=== PATIENT | male | born 1935 | race African-American/Black ===

== ENCOUNTER 2021-12-11 20:17 | Observation (INO) ==
[2021-12-11] MEDS ORDERED: SODIUM CHLORIDE 0.9% 1,000 ML IV STA (21:23)
[2021-12-11 21:58] LABS: Basophils % 0.1 % (0.0-0.8); Eosinophils % 0.1 % (0.00-10.9); Hematocrit 40.8 VOL% (42.0-52.0); Hemoglobin 13.4 GM/DL (14.0-18.0); Immature Granulocytes % 0.9 %; Immature Granulocytes Absolute 0.06 #; Lymphocytes # 0.7 10*3/uL (1.4-4.0); Lymphocytes % 9.7 % (21.2-54.2); Mean Corpuscular HGB Conc 32.8 GM/DL (32-36); Mean Corpuscular Volume 90.7 FL (87-102); Mean Platelet Volume 10.8 FL (9.6-12.0); Monocytes # 0.3 10*3/uL (0.11-0.8); Monocytes % 4.4 % (1.7-12.7); Neutrophils % 84.8 % (38.7-73.9); Platelet Count 157 T/CUMM (130-400); Red Cell Distribution Width 14.1 % (9.3-17.3)
[2021-12-11 22:24] LABS: Albumin 3.1 G/DL (3.4-5.0); Bilirubin,Total 0.4 MG/DL (0.20-1.00); Calcium 9.1 MG/DL (8.5-10.1); Osmolality,Calculated 271.5 MOS/KG (273-304); Potassium 3.6 MMOL/L (3.5-5.1); Thyroid Stimulating Hormone 1.13 uIU/ml (0.358-3.74); Total Protein 7.6 G/DL (6.4-8.2)
[2021-12-11 22:49] LABS: Bilirubin,Urine Negative (Negative); Blood, Urine Negative (Negative); Glucose,Urine (UA) Negative (Negative); Ketones,Urine Negative (Negative); Mucus,Urine Occasional /LPF (Occasional); Nitrite,Urine Negative (Negative); Protein,Urine Negative (Negative); RBC,Urine 1 /HPF (0-4); Urine Appearance Clear (Clear); Urine Color Yellow (Yellow); Urine Specific Gravity 1.015 (1.001-1.035); Urine Urobilinogen 0.2 eU/dL (<2.0)
[2021-12-11] MEDS: DEXTROSE 5% NACL 0.45% 1,000 ML IV SCH (23:44)
[2021-12-12] MEDS ORDERED: DEXTROSE 10% 250 ML BAG IV PRN (00:26)
[2021-12-12] MEDS ORDERED: ONDANSETRON 4 MG/2 ML VIAL IV PRN (00:26)
[2021-12-12] MEDS ORDERED: diphenhydrAMINE CAP 25 MG CAPSULE PO PRN (00:26)
[2021-12-12] MEDS ORDERED: ACETAMINOPHEN 325 MG TABLET PO PRN (00:26)
[2021-12-12] MEDS ORDERED: guaiFENesin/DM ER 600-30 MG TABLET PO PRN (00:26)
[2021-12-12] MEDS ORDERED: GLUCAGON 1 MG VIAL IM PRN ×2 (00:26)
[2021-12-12] MEDS ORDERED: hydrALAZINE 20 MG/1 ML VIAL IV PRN (00:26)
[2021-12-12] MEDS ORDERED: NICOTINE 21 MG/24 HR PATCH TRANSDERM PRN (00:26)
[2021-12-12] MEDS ORDERED: DEXTROSE 50% 25 GM/50 ML VIAL IV PRN (00:26)
[2021-12-12 01:17] LABS: INR 1.9; PT Patient Result 20.2 SECS (10.5-12.0); Partial Thromboplastin Time 31.2 SECS (23.8-32.1)
[2021-12-12] MEDS: DEXTROSE 5% NACL 0.45% 1,000 ML IV SCH (03:58)
[2021-12-12 05:49] LABS: Calcium 8.7 MG/DL (8.5-10.1); Osmolality,Calculated 268.8 MOS/KG (273-304); Potassium 4.6 MMOL/L (3.5-5.1)
[2021-12-12 06:21] LABS: Basophils % 0.3 % (0.0-0.8); Eosinophils % 0.3 % (0.00-10.9); Hematocrit 39.6 VOL% (42.0-52.0); Hemoglobin 12.5 GM/DL (14.0-18.0); Immature Granulocytes % 0.5 %; Immature Granulocytes Absolute 0.03 #; Mean Corpuscular HGB Conc 31.6 GM/DL (32-36); Mean Corpuscular Volume 94.1 FL (87-102); Mean Platelet Volume 11.3 FL (9.6-12.0); Monocytes # 0.6 10*3/uL (0.11-0.8); Monocytes % 9.3 % (1.7-12.7); Neutrophils % 72.6 % (38.7-73.9); Platelet Count 126 T/CUMM (130-400); Red Blood Count 4.21 MC/CUMM (3.8-5.5); Red Cell Distribution Width 14.3 % (9.3-17.3); White Blood Count 6.1 T/CUMM (4-12)
[2021-12-12] MEDS ORDERED: DEXTROSE 5% NACL 0.9% 1,000 ML IV SCH (07:00)
[2021-12-12] MEDS ORDERED: DEXTROSE 10% 1,000 ML IV SCH (07:00)
[2021-12-12] MEDS ORDERED: SERTRALINE 25 MG TABLET PO SCH (09:00)
[2021-12-12] MEDS ORDERED: PANTOPRAZOLE 40 MG TABLET PO SCH (09:00)
[2021-12-12] MEDS ORDERED: sitaGLIPtin 100 MG TABLET PO SCH (09:00)
[2021-12-12] MEDS ORDERED: lisinopriL 20 MG TABLET PO SCH (09:00)
[2021-12-12] MEDS ORDERED: FUROSEMIDE 20 MG TABLET PO SCH (09:00)
[2021-12-12] MEDS: POLYVINYL ALCOHOL 1.4% OPH SOLN 15 ML BOTTLE RIGHT EYE SCH ×2 (11:10→13:46)
[2021-12-12 15:36] VITALS: BP 134/51
[2021-12-12] MEDS ORDERED: WARFARIN 5 MG TABLET PO SCH (18:00)
[2021-12-12] MEDS ORDERED: SIMVASTATIN 40 MG TABLET PO SCH (21:00)
== END 2021-12-12 18:05 | disposition home health service (06) ==
LOC: N.EDINP 20:17 → N.ED 20:17 → SUATTDRO 12-12 00:26 → N.5E 12-12 03:52
PROVIDERS: ADMIT Internal Medicine; ATTEND Internal Medicine

== ENCOUNTER 2022-02-27 19:04 | Inpatient (IN) ==
[2022-02-27] MEDS ORDERED: SODIUM CHLORIDE 0.9% 1,000 ML IV STA ×2 (20:09→22:31)
[2022-02-27 20:34] LABS: Basophils % 0.3 % (0.0-0.8); Hematocrit 33.9 VOL% (42.0-52.0); Immature Granulocytes % 1.6 %; Lymphocytes # 0.7 10*3/uL (1.4-4.0); Lymphocytes % 10.4 % (21.2-54.2); Mean Corpuscular HGB Conc 32.4 GM/DL (32-36); Mean Platelet Volume 11.5 FL (9.6-12.0); Monocytes # 0.6 10*3/uL (0.11-0.8); Monocytes % 9.9 % (1.7-12.7); Neutrophils % 77.8 % (38.7-73.9); Platelet Count 181 T/CUMM (130-400); Red Blood Count 3.81 MC/CUMM (3.8-5.5); Red Cell Distribution Width 15.4 % (9.3-17.3); White Blood Count 6.4 T/CUMM (4-12)
[2022-02-27 20:52] LABS: INR 1.1; PT Patient Result 12.4 SECS (10.1-12.1)
[2022-02-27 21:16] LABS: Alanine Aminotransferase 24 U/L (16-61); Albumin 2.9 G/DL (3.4-5.0); Alkaline Phosphatase 760 U/L (45-117); Aspartate Amino Transferase 106 U/L (0-37); Blood Urea Nitrogen 20 MG/DL (7-18); Calcium 8.9 MG/DL (8.5-10.1); Carbon Dioxide 24 MMOL/L (21-32); Chloride 110 MMOL/L (98-107); Glucose 263 MG/DL (74-106); Potassium 4.3 MMOL/L (3.5-5.1); Sodium 143 MMOL/L (136-145)
[2022-02-27] MEDS ORDERED: LEVOFLOXACIN INJ 500 MG/100 ML PREMIX IV ONE (21:32)
[2022-02-27 22:30] LABS: Glucose,Urine (UA) Negative (Negative); Hyaline Casts,Urine 32 /LPF (0-3); Ketones,Urine Trace mg/dL (Negative); Mucus,Urine Occasional /LPF (Occasional); Protein,Urine 30 mg/dL (Negative); RBC,Urine 1 /HPF (0-4); Squamous Epithelial Cell,Urine Occasional /HPF (0-10); Urine Appearance Clear (Clear); Urine Color Yellow (Yellow); Urine pH 5.5 (4.5-8.0)
[2022-02-27 22:31] LABS: Barbiturates Screen,Urine Negative (Negative); Benzodiazepines Screen,Urine Negative (Negative); Bilirubin,Urine Small mg/dL (Negative); Blood, Urine Negative (Negative); Cannabinoid Screen,Urine Negative (Negative); Nitrite,Urine Negative (Negative); Opiate Screen,Urine Negative (Negative); Phencyclidine Screen,Urine Negative (Negative); Urine Urobilinogen 0.2 eU/dL (<2.0)
[2022-02-28] MEDS ORDERED: ACETAMINOPHEN 325 MG TABLET PO PRN (00:06)
[2022-02-28] MEDS ORDERED: GLUCAGON 1 MG VIAL IM PRN (00:06)
[2022-02-28] MEDS ORDERED: ONDANSETRON 4 MG/2 ML VIAL IV PRN (00:06)
[2022-02-28] MEDS ORDERED: DEXTROSE 10% 250 ML BAG IV PRN (00:21)
[2022-02-28] MEDS: LACTATED RINGERS 1,000 ML IV SCH ×2 (01:30→17:35)
[2022-02-28 03:34] LABS: Basophils % 0.2 % (0.0-0.8); Hematocrit 35.2 VOL% (42.0-52.0); Hemoglobin 11.3 GM/DL (14.0-18.0); Immature Granulocytes Absolute 0.06 #; Lymphocytes # 0.9 10*3/uL (1.4-4.0); Lymphocytes % 14.6 % (21.2-54.2); Mean Corpuscular HGB Conc 32.1 GM/DL (32-36); Mean Corpuscular Volume 89.3 FL (87-102); Mean Platelet Volume 10.6 FL (9.6-12.0); Monocytes # 0.5 10*3/uL (0.11-0.8); Monocytes % 7.7 % (1.7-12.7); Neutrophils % 76.5 % (38.7-73.9); Platelet Count 169 T/CUMM (130-400); Red Blood Count 3.94 MC/CUMM (3.8-5.5); Red Cell Distribution Width 15.3 % (9.3-17.3)
[2022-02-28 04:01] LABS: Calcium 8.9 MG/DL (8.5-10.1); Osmolality,Calculated 290.8 MOS/KG (273-304); Potassium 3.9 MMOL/L (3.5-5.1)
[2022-02-28] MEDS: cefTRIAXone 1,000 MG in SODIUM CHLORIDE 0.9% 100 ML IV SCH (04:57)
[2022-02-28] MEDS: AZITHROMYCIN INJ 500 MG in SODIUM CHLORIDE 0.9% 250 ML IV SCH (05:49)
[2022-02-28] MEDS: DOCUSATE SODIUM 100 MG CAPSULE PO SCH ×2 (09:06→20:16)
[2022-02-28] MEDS: PANTOPRAZOLE 40 MG TABLET PO SCH (09:07)
[2022-02-28] MEDS: lisinopriL 20 MG TABLET PO SCH (09:07)
[2022-02-28] MEDS: INSULIN REGULAR 100 UNIT/ML SUBCUT SCH ×4 (09:07→20:17)
[2022-02-28 16:03] LABS: Prostate Specific Antigen Diag > 500.00 NG/ML (0-3.60)
[2022-02-28] MEDS: ENOXAPARIN 60 MG/0.6 ML SYRINGE SUBCUT SCH (18:42)
[2022-02-28] MEDS: SERTRALINE 50 MG TABLET PO SCH (20:16)
[2022-03-01] MEDS: LACTATED RINGERS 1,000 ML IV SCH ×3 (03:55→22:28)
[2022-03-01] MEDS: cefTRIAXone 1,000 MG in SODIUM CHLORIDE 0.9% 100 ML IV SCH (04:01)
[2022-03-01] MEDS: AZITHROMYCIN INJ 500 MG in SODIUM CHLORIDE 0.9% 250 ML IV SCH (04:41)
[2022-03-01] MEDS: ENOXAPARIN 60 MG/0.6 ML SYRINGE SUBCUT SCH ×2 (05:23→18:10)
[2022-03-01] MEDS: INSULIN REGULAR 100 UNIT/ML SUBCUT SCH ×4 (08:21→21:15)
[2022-03-01] MEDS: PANTOPRAZOLE 40 MG TABLET PO SCH (09:25)
[2022-03-01] MEDS: DOCUSATE SODIUM 100 MG CAPSULE PO SCH ×2 (09:26→20:51)
[2022-03-01] MEDS: lisinopriL 20 MG TABLET PO SCH (09:26)
[2022-03-01] MEDS: VANCOMYCIN INJ 1,000 MG in SODIUM CHLORIDE 0.9% 250 ML IV SCH (14:55)
[2022-03-01] MEDS: SERTRALINE 50 MG TABLET PO SCH (20:51)
[2022-03-02] MEDS: cefTRIAXone 1,000 MG in SODIUM CHLORIDE 0.9% 100 ML IV SCH (01:25)
[2022-03-02] MEDS: VANCOMYCIN INJ 1,000 MG in SODIUM CHLORIDE 0.9% 250 ML IV SCH (02:24)
[2022-03-02] MEDS ORDERED: LORazepam 0.5 MG TABLET PO ONE (02:30)
[2022-03-02] MEDS: AZITHROMYCIN INJ 500 MG in SODIUM CHLORIDE 0.9% 250 ML IV SCH (05:05)
[2022-03-02] MEDS: LACTATED RINGERS 1,000 ML IV SCH ×2 (06:10→17:15)
[2022-03-02] MEDS: ENOXAPARIN 60 MG/0.6 ML SYRINGE SUBCUT SCH ×2 (06:17→18:25)
[2022-03-02] MEDS: DOCUSATE SODIUM 100 MG CAPSULE PO SCH ×2 (09:06→21:47)
[2022-03-02] MEDS: lisinopriL 20 MG TABLET PO SCH (09:07)
[2022-03-02] MEDS: PANTOPRAZOLE 40 MG TABLET PO SCH (09:07)
[2022-03-02] MEDS: INSULIN REGULAR 100 UNIT/ML SUBCUT SCH ×4 (09:08→21:47)
[2022-03-02] MEDS ORDERED: VANCOMYCIN INJ 1,000 MG in SODIUM CHLORIDE 0.9% 250 ML IV SCH (21:00)
[2022-03-02] MEDS: SERTRALINE 50 MG TABLET PO SCH (21:47)
[2022-03-03] MEDS: cefTRIAXone 1,000 MG in SODIUM CHLORIDE 0.9% 100 ML IV SCH (01:53)
[2022-03-03] MEDS: LACTATED RINGERS 1,000 ML IV SCH ×3 (04:25→20:59)
[2022-03-03] MEDS: AZITHROMYCIN INJ 500 MG in SODIUM CHLORIDE 0.9% 250 ML IV SCH (04:50)
[2022-03-03] MEDS: ENOXAPARIN 60 MG/0.6 ML SYRINGE SUBCUT SCH ×2 (05:49→18:26)
[2022-03-03] MEDS: PANTOPRAZOLE 40 MG TABLET PO SCH (09:57)
[2022-03-03] MEDS: lisinopriL 20 MG TABLET PO SCH (09:57)
[2022-03-03] MEDS: DOCUSATE SODIUM 100 MG CAPSULE PO SCH ×2 (09:57→20:59)
[2022-03-03] MEDS: INSULIN REGULAR 100 UNIT/ML SUBCUT SCH ×4 (10:43→21:35)
[2022-03-03] MEDS ORDERED: MAGNESIUM HYDROXIDE SUSP 30 ML UDCUP PO ONE (15:43)
[2022-03-03] MEDS: POLYETHYLENE GLYCOL POWDER 17 GM PACK PO SCH (20:59)
[2022-03-03] MEDS: SERTRALINE 50 MG TABLET PO SCH (20:59)
[2022-03-04] MEDS: cefTRIAXone 1,000 MG in SODIUM CHLORIDE 0.9% 100 ML IV SCH (02:02)
[2022-03-04] MEDS: AZITHROMYCIN INJ 500 MG in SODIUM CHLORIDE 0.9% 250 ML IV SCH (05:18)
[2022-03-04] MEDS: ENOXAPARIN 60 MG/0.6 ML SYRINGE SUBCUT SCH ×2 (06:22→18:09)
[2022-03-04] MEDS ORDERED: LINACLOTIDE 145 MCG CAPSULE PO SCH (07:30)
[2022-03-04] MEDS: INSULIN REGULAR 100 UNIT/ML SUBCUT SCH ×4 (08:27→21:20)
[2022-03-04] MEDS: lisinopriL 20 MG TABLET PO SCH (10:33)
[2022-03-04] MEDS: POLYETHYLENE GLYCOL POWDER 17 GM PACK PO SCH (10:33)
[2022-03-04] MEDS: PANTOPRAZOLE 40 MG TABLET PO SCH (10:33)
[2022-03-04] MEDS: DOCUSATE SODIUM 100 MG CAPSULE PO SCH ×2 (10:34→21:19)
[2022-03-04] MEDS: LACTATED RINGERS 1,000 ML IV SCH (12:57)
[2022-03-04] MEDS: SERTRALINE 50 MG TABLET PO SCH (21:19)
[2022-03-04] MEDS: TAMSULOSIN 0.4 MG CAPSULE PO SCH (21:19)
[2022-03-05] MEDS: cefTRIAXone 1,000 MG in SODIUM CHLORIDE 0.9% 100 ML IV SCH (01:49)
[2022-03-05] MEDS: LACTATED RINGERS 1,000 ML IV SCH ×2 (01:49→16:14)
[2022-03-05 04:19] LABS: Basophils % 0.2 % (0.0-0.8); Eosinophils % 0.3 % (0.00-10.9); Hematocrit 32.5 VOL% (42.0-52.0); Hemoglobin 10.7 GM/DL (14.0-18.0); Immature Granulocytes % 0.9 %; Immature Granulocytes Absolute 0.06 #; Lymphocytes % 14.5 % (21.2-54.2); Mean Corpuscular HGB Conc 32.9 GM/DL (32-36); Mean Corpuscular Volume 86.9 FL (87-102); Mean Platelet Volume 11.1 FL (9.6-12.0); Monocytes # 0.6 10*3/uL (0.11-0.8); Monocytes % 8.4 % (1.7-12.7); Neutrophils % 75.7 % (38.7-73.9); Platelet Count 174 T/CUMM (130-400); Red Blood Count 3.74 MC/CUMM (3.8-5.5); Red Cell Distribution Width 15.5 % (9.3-17.3); White Blood Count 6.6 T/CUMM (4-12)
[2022-03-05 04:35] LABS: Calcium 8.5 MG/DL (8.5-10.1); Potassium 3.8 MMOL/L (3.5-5.1)
[2022-03-05] MEDS: AZITHROMYCIN INJ 500 MG in SODIUM CHLORIDE 0.9% 250 ML IV SCH (05:59)
[2022-03-05] MEDS: ENOXAPARIN 60 MG/0.6 ML SYRINGE SUBCUT SCH ×2 (05:59→19:41)
[2022-03-05] MEDS: INSULIN REGULAR 100 UNIT/ML SUBCUT SCH ×4 (07:43→21:31)
[2022-03-05] MEDS: LINACLOTIDE 145 MCG CAPSULE PO SCH (10:06)
[2022-03-05] MEDS: lisinopriL 20 MG TABLET PO SCH (10:07)
[2022-03-05] MEDS: PANTOPRAZOLE 40 MG TABLET PO SCH (10:07)
[2022-03-05] MEDS: DOCUSATE SODIUM 100 MG CAPSULE PO SCH ×2 (10:07→21:31)
[2022-03-05] MEDS: POLYETHYLENE GLYCOL POWDER 17 GM PACK PO SCH (10:07)
[2022-03-05] MEDS: BICALUTAMIDE 50 MG TABLET PO SCH (16:14)
[2022-03-05] MEDS: SERTRALINE 50 MG TABLET PO SCH (21:31)
[2022-03-05] MEDS: TAMSULOSIN 0.4 MG CAPSULE PO SCH (21:31)
[2022-03-05] MEDS: OLANZapine ODT 5 MG TABLET PO SCH (21:32)
[2022-03-06] MEDS: cefTRIAXone 1,000 MG in SODIUM CHLORIDE 0.9% 100 ML IV SCH (01:34)
[2022-03-06] MEDS: LACTATED RINGERS 1,000 ML IV SCH ×2 (04:19→18:32)
[2022-03-06] MEDS: AZITHROMYCIN INJ 500 MG in SODIUM CHLORIDE 0.9% 250 ML IV SCH (04:20)
[2022-03-06] MEDS: ENOXAPARIN 60 MG/0.6 ML SYRINGE SUBCUT SCH ×2 (05:09→17:24)
[2022-03-06 06:26] LABS: Calcium 8.7 MG/DL (8.5-10.1); Osmolality,Calculated 270.8 MOS/KG (273-304); Potassium 3.8 MMOL/L (3.5-5.1)
[2022-03-06 06:40] LABS: Basophils % 0.2 % (0.0-0.8); Eosinophils # 0.1 10*3/uL (0.0-0.87); Eosinophils % 1.2 % (0.00-10.9); Hematocrit 33.2 VOL% (42.0-52.0); Hemoglobin 10.8 GM/DL (14.0-18.0); Immature Granulocytes % 1.2 %; Immature Granulocytes Absolute 0.07 #; Lymphocytes % 16.2 % (21.2-54.2); Mean Corpuscular HGB Conc 32.5 GM/DL (32-36); Mean Corpuscular Volume 86.9 FL (87-102); Mean Platelet Volume 11.2 FL (9.6-12.0); Monocytes # 0.7 10*3/uL (0.11-0.8); Monocytes % 11.1 % (1.7-12.7); Neutrophils % 70.1 % (38.7-73.9); Platelet Count 190 T/CUMM (130-400); Red Blood Count 3.82 MC/CUMM (3.8-5.5); Red Cell Distribution Width 15.5 % (9.3-17.3); White Blood Count 6.1 T/CUMM (4-12)
[2022-03-06] MEDS: INSULIN REGULAR 100 UNIT/ML SUBCUT SCH ×4 (08:19→22:24)
[2022-03-06] MEDS: PANTOPRAZOLE 40 MG TABLET PO SCH (08:52)
[2022-03-06] MEDS: lisinopriL 20 MG TABLET PO SCH (08:52)
[2022-03-06] MEDS: BICALUTAMIDE 50 MG TABLET PO SCH (08:52)
[2022-03-06] MEDS: LINACLOTIDE 145 MCG CAPSULE PO SCH (08:52)
[2022-03-06] MEDS: DOCUSATE SODIUM 100 MG CAPSULE PO SCH ×2 (08:52→22:22)
[2022-03-06] MEDS: POLYETHYLENE GLYCOL POWDER 17 GM PACK PO SCH (08:53)
[2022-03-06] MEDS: OLANZapine ODT 5 MG TABLET PO SCH (10:45)
[2022-03-06] MEDS: hydrALAZINE 10 MG TABLET PO SCH (22:23)
[2022-03-06] MEDS: SERTRALINE 50 MG TABLET PO SCH (22:23)
[2022-03-06] MEDS: TAMSULOSIN 0.4 MG CAPSULE PO SCH (22:24)
[2022-03-07] MEDS: cefTRIAXone 1,000 MG in SODIUM CHLORIDE 0.9% 100 ML IV SCH (02:52)
[2022-03-07 04:34] LABS: Basophils % 0.2 % (0.0-0.8); Eosinophils # 0.1 10*3/uL (0.0-0.87); Eosinophils % 1.2 % (0.00-10.9); Hematocrit 34.1 VOL% (42.0-52.0); Immature Granulocytes % 1.2 %; Immature Granulocytes Absolute 0.07 #; Lymphocytes # 0.9 10*3/uL (1.4-4.0); Lymphocytes % 16.3 % (21.2-54.2); Mean Corpuscular HGB Conc 32.3 GM/DL (32-36); Mean Corpuscular Volume 87.7 FL (87-102); Monocytes # 0.6 10*3/uL (0.11-0.8); Neutrophils % 71.1 % (38.7-73.9); Platelet Count 187 T/CUMM (130-400); Red Blood Count 3.89 MC/CUMM (3.8-5.5); Red Cell Distribution Width 15.5 % (9.3-17.3); White Blood Count 5.7 T/CUMM (4-12)
[2022-03-07 04:56] LABS: Calcium 8.2 MG/DL (8.5-10.1); Osmolality,Calculated 270.8 MOS/KG (273-304); Potassium 3.9 MMOL/L (3.5-5.1)
[2022-03-07] MEDS: AZITHROMYCIN INJ 500 MG in SODIUM CHLORIDE 0.9% 250 ML IV SCH (06:01)
[2022-03-07] MEDS: ENOXAPARIN 60 MG/0.6 ML SYRINGE SUBCUT SCH ×2 (06:02→18:22)
[2022-03-07] MEDS: INSULIN REGULAR 100 UNIT/ML SUBCUT SCH ×4 (07:24→21:16)
[2022-03-07] MEDS: LINACLOTIDE 145 MCG CAPSULE PO SCH (07:29)
[2022-03-07] MEDS: LACTATED RINGERS 1,000 ML IV SCH (07:31)
[2022-03-07] MEDS: POLYETHYLENE GLYCOL POWDER 17 GM PACK PO SCH (09:15)
[2022-03-07] MEDS: PANTOPRAZOLE 40 MG TABLET PO SCH (09:16)
[2022-03-07] MEDS: BICALUTAMIDE 50 MG TABLET PO SCH (09:16)
[2022-03-07] MEDS: lisinopriL 20 MG TABLET PO SCH (09:16)
[2022-03-07] MEDS: DOCUSATE SODIUM 100 MG CAPSULE PO SCH ×2 (09:16→21:15)
[2022-03-07] MEDS: hydrALAZINE 10 MG TABLET PO SCH ×2 (09:16→21:16)
[2022-03-07] MEDS: TAMSULOSIN 0.4 MG CAPSULE PO SCH (21:15)
[2022-03-07] MEDS: SERTRALINE 50 MG TABLET PO SCH (21:16)
[2022-03-08] MEDS: LACTATED RINGERS 1,000 ML IV SCH ×2 (00:16→15:00)
[2022-03-08 05:41] LABS: Basophils % 0.4 % (0.0-0.8); Eosinophils # 0.1 10*3/uL (0.0-0.87); Eosinophils % 1.3 % (0.00-10.9); Hematocrit 31.7 VOL% (42.0-52.0); Hemoglobin 10.4 GM/DL (14.0-18.0); Immature Granulocytes % 1.7 %; Immature Granulocytes Absolute 0.09 #; Lymphocytes % 18.6 % (21.2-54.2); Mean Corpuscular HGB Conc 32.8 GM/DL (32-36); Mean Corpuscular Volume 87.3 FL (87-102); Mean Platelet Volume 10.2 FL (9.6-12.0); Monocytes # 0.5 10*3/uL (0.11-0.8); Monocytes % 8.6 % (1.7-12.7); Neutrophils % 69.4 % (38.7-73.9); Platelet Count 189 T/CUMM (130-400); Red Blood Count 3.63 MC/CUMM (3.8-5.5); Red Cell Distribution Width 15.4 % (9.3-17.3); White Blood Count 5.3 T/CUMM (4-12)
[2022-03-08 06:05] LABS: Calcium 8.6 MG/DL (8.5-10.1); Osmolality,Calculated 274.7 MOS/KG (273-304); Potassium 3.8 MMOL/L (3.5-5.1)
[2022-03-08] MEDS: ENOXAPARIN 60 MG/0.6 ML SYRINGE SUBCUT SCH ×2 (07:06→18:10)
[2022-03-08] MEDS: LINACLOTIDE 145 MCG CAPSULE PO SCH (07:32)
[2022-03-08] MEDS: INSULIN REGULAR 100 UNIT/ML SUBCUT SCH ×4 (08:05→21:42)
[2022-03-08] MEDS: BICALUTAMIDE 50 MG TABLET PO SCH (09:33)
[2022-03-08] MEDS: PANTOPRAZOLE 40 MG TABLET PO SCH (09:33)
[2022-03-08] MEDS: lisinopriL 20 MG TABLET PO SCH (09:33)
[2022-03-08] MEDS: POLYETHYLENE GLYCOL POWDER 17 GM PACK PO SCH (09:33)
[2022-03-08] MEDS: DOCUSATE SODIUM 100 MG CAPSULE PO SCH ×2 (09:34→21:41)
[2022-03-08] MEDS: hydrALAZINE 10 MG TABLET PO SCH ×2 (09:34→21:41)
[2022-03-08] MEDS: SERTRALINE 50 MG TABLET PO SCH (21:41)
[2022-03-08] MEDS: TAMSULOSIN 0.4 MG CAPSULE PO SCH (21:41)
[2022-03-09] MEDS: LACTATED RINGERS 1,000 ML IV SCH ×2 (00:06→15:56)
[2022-03-09] MEDS: ENOXAPARIN 60 MG/0.6 ML SYRINGE SUBCUT SCH (05:25)
[2022-03-09 05:47] LABS: Basophils % 0.4 % (0.0-0.8); Eosinophils # 0.1 10*3/uL (0.0-0.87); Hematocrit 31.6 VOL% (42.0-52.0); Hemoglobin 10.3 GM/DL (14.0-18.0); Immature Granulocytes % 1.9 %; Lymphocytes % 19.5 % (21.2-54.2); Mean Corpuscular HGB Conc 32.6 GM/DL (32-36); Mean Corpuscular Volume 87.8 FL (87-102); Mean Platelet Volume 10.3 FL (9.6-12.0); Monocytes # 0.4 10*3/uL (0.11-0.8); Monocytes % 8.5 % (1.7-12.7); Neutrophils % 68.7 % (38.7-73.9); Platelet Count 198 T/CUMM (130-400); Red Cell Distribution Width 15.4 % (9.3-17.3); White Blood Count 5.2 T/CUMM (4-12)
[2022-03-09 05:58] LABS: Calcium 8.1 MG/DL (8.5-10.1); Osmolality,Calculated 274.5 MOS/KG (273-304); Potassium 3.8 MMOL/L (3.5-5.1)
[2022-03-09] MEDS: INSULIN REGULAR 100 UNIT/ML SUBCUT SCH ×4 (08:04→20:30)
[2022-03-09] MEDS: OLANZapine ODT 5 MG TABLET PO PRN (09:58)
[2022-03-09] MEDS: PANTOPRAZOLE 40 MG TABLET PO SCH (09:59)
[2022-03-09] MEDS: hydrALAZINE 10 MG TABLET PO SCH ×2 (09:59→22:00)
[2022-03-09] MEDS: POLYETHYLENE GLYCOL POWDER 17 GM PACK PO SCH (09:59)
[2022-03-09] MEDS: LINACLOTIDE 145 MCG CAPSULE PO SCH (09:59)
[2022-03-09] MEDS: DOCUSATE SODIUM 100 MG CAPSULE PO SCH ×2 (09:59→22:00)
[2022-03-09] MEDS: BICALUTAMIDE 50 MG TABLET PO SCH (09:59)
[2022-03-09] MEDS: lisinopriL 20 MG TABLET PO SCH (10:00)
[2022-03-09] MEDS: TAMSULOSIN 0.4 MG CAPSULE PO SCH (22:00)
[2022-03-09] MEDS: SERTRALINE 50 MG TABLET PO SCH (22:01)
[2022-03-10 04:01] LABS: Basophils % 0.3 % (0.0-0.8); Eosinophils # 0.1 10*3/uL (0.0-0.87); Eosinophils % 0.8 % (0.00-10.9); Hematocrit 31.9 VOL% (42.0-52.0); Hemoglobin 10.3 GM/DL (14.0-18.0); Immature Granulocytes % 1.7 %; Lymphocytes % 17.2 % (21.2-54.2); Mean Corpuscular HGB Conc 32.3 GM/DL (32-36); Mean Corpuscular Volume 88.6 FL (87-102); Mean Platelet Volume 10.3 FL (9.6-12.0); Monocytes # 0.5 10*3/uL (0.11-0.8); Monocytes % 8.1 % (1.7-12.7); Neutrophils % 71.9 % (38.7-73.9); Platelet Count 207 T/CUMM (130-400); Red Cell Distribution Width 15.6 % (9.3-17.3); White Blood Count 5.9 T/CUMM (4-12)
[2022-03-10 04:14] LABS: Calcium 8.3 MG/DL (8.5-10.1); Osmolality,Calculated 278.3 MOS/KG (273-304); Potassium 3.8 MMOL/L (3.5-5.1)
[2022-03-10] MEDS: LACTATED RINGERS 1,000 ML IV SCH ×3 (04:41→18:26)
[2022-03-10] MEDS: INSULIN REGULAR 100 UNIT/ML SUBCUT SCH ×4 (08:20→20:46)
[2022-03-10] MEDS: LINACLOTIDE 145 MCG CAPSULE PO SCH (11:05)
[2022-03-10] MEDS ORDERED: DEXAMETHASONE 4 MG/1 ML VIAL ONE (12:36)
[2022-03-10] MEDS ORDERED: LIDOCAINE 2% 5 ML VIAL ONE (12:36)
[2022-03-10] MEDS ORDERED: propofoL 200 MG/20 ML VIAL IV ONE (12:36)
[2022-03-10] MEDS ORDERED: SEVOFLURANE 1 UNIT/15 MINUTE INH ONE ×4 (12:36→13:44)
[2022-03-10] MEDS ORDERED: ONDANSETRON 4 MG/2 ML VIAL ONE (12:36)
[2022-03-10] MEDS ORDERED: fentaNYL 100 MCG/2 ML VIAL ONE (12:37)
[2022-03-10] MEDS ORDERED: PHENYLEPHRINE 1 MG/10 ML SYRINGE IV ONE ×3 (13:13→13:44)
[2022-03-10] MEDS ORDERED: ROPIVACAINE 0.5% 30 ML VIAL ONE (13:14)
[2022-03-10] MEDS ORDERED: cefTRIAXone 1,000 MG VIAL ONE (13:17)
[2022-03-10] MEDS ORDERED: BACITRACIN OINT 0.9 GM PACK TOP ONE (13:17)
[2022-03-10] MEDS: hydrALAZINE 10 MG TABLET PO SCH ×2 (13:19→20:48)
[2022-03-10] MEDS: PANTOPRAZOLE 40 MG TABLET PO SCH (13:20)
[2022-03-10] MEDS: BICALUTAMIDE 50 MG TABLET PO SCH (13:20)
[2022-03-10] MEDS: lisinopriL 20 MG TABLET PO SCH (13:20)
[2022-03-10] MEDS: POLYETHYLENE GLYCOL POWDER 17 GM PACK PO SCH (13:20)
[2022-03-10] MEDS: DOCUSATE SODIUM 100 MG CAPSULE PO SCH ×2 (13:20→20:48)
[2022-03-10] MEDS ORDERED: CALCIUM CHLORIDE 1,000 MG/10 ML VIAL IV ONE (13:22)
[2022-03-10] MEDS ORDERED: ACETAMINOPHEN INJ 1,000 MG/100 ML VIAL IV ONE (13:34)
[2022-03-10] MEDS ORDERED: LACTATED RINGERS 1,000 ML IV ONE (13:35)
[2022-03-10] MEDS ORDERED: ePHEDrine 50 MG/ML VIAL ONE (13:43)
[2022-03-10] MEDS ORDERED: HYDROmorphone 1 MG/1 ML SYRINGE ONE (14:57)
[2022-03-10] MEDS ORDERED: HYDROmorphone 1 MG/1 ML SYRINGE IV PRN (14:59)
[2022-03-10] MEDS: TAMSULOSIN 0.4 MG CAPSULE PO SCH (20:48)
[2022-03-10] MEDS: SERTRALINE 50 MG TABLET PO SCH (20:48)
[2022-03-11] MEDS: LACTATED RINGERS 1,000 ML IV SCH ×2 (06:09→14:24)
[2022-03-11] MEDS: ENOXAPARIN 60 MG/0.6 ML SYRINGE SUBCUT SCH ×2 (06:09→17:43)
[2022-03-11] MEDS: INSULIN REGULAR 100 UNIT/ML SUBCUT SCH ×5 (07:44→21:01)
[2022-03-11] MEDS: POLYETHYLENE GLYCOL POWDER 17 GM PACK PO SCH (08:14)
[2022-03-11] MEDS: LINACLOTIDE 145 MCG CAPSULE PO SCH (08:15)
[2022-03-11] MEDS: BICALUTAMIDE 50 MG TABLET PO SCH (08:16)
[2022-03-11] MEDS: PANTOPRAZOLE 40 MG TABLET PO SCH (08:16)
[2022-03-11] MEDS: hydrALAZINE 10 MG TABLET PO SCH ×2 (08:16→21:01)
[2022-03-11] MEDS: lisinopriL 20 MG TABLET PO SCH (08:17)
[2022-03-11] MEDS: DOCUSATE SODIUM 100 MG CAPSULE PO SCH ×2 (08:17→21:01)
[2022-03-11] MEDS ORDERED: amLODIPine 10 MG TABLET PO SCH (09:00)
[2022-03-11] MEDS: TAMSULOSIN 0.4 MG CAPSULE PO SCH (21:01)
[2022-03-11] MEDS: SERTRALINE 50 MG TABLET PO SCH (21:01)
[2022-03-12] MEDS: LACTATED RINGERS 1,000 ML IV SCH ×3 (00:14→21:51)
[2022-03-12] MEDS: ENOXAPARIN 60 MG/0.6 ML SYRINGE SUBCUT SCH ×2 (05:28→17:50)
[2022-03-12] MEDS: INSULIN REGULAR 100 UNIT/ML SUBCUT SCH ×4 (08:05→21:50)
[2022-03-12] MEDS: LINACLOTIDE 145 MCG CAPSULE PO SCH (08:13)
[2022-03-12] MEDS: POLYETHYLENE GLYCOL POWDER 17 GM PACK PO SCH (08:55)
[2022-03-12] MEDS: lisinopriL 20 MG TABLET PO SCH (08:56)
[2022-03-12] MEDS: PANTOPRAZOLE 40 MG TABLET PO SCH (08:56)
[2022-03-12] MEDS: hydrALAZINE 10 MG TABLET PO SCH ×2 (08:56→21:49)
[2022-03-12] MEDS: DOCUSATE SODIUM 100 MG CAPSULE PO SCH ×2 (08:56→21:48)
[2022-03-12] MEDS: BICALUTAMIDE 50 MG TABLET PO SCH (08:57)
[2022-03-12] MEDS: BACITRACIN OINT 0.9 GM PACK TOP SCH ×3 (09:00→21:50)
[2022-03-12] MEDS: TAMSULOSIN 0.4 MG CAPSULE PO SCH (21:48)
[2022-03-12] MEDS: SERTRALINE 50 MG TABLET PO SCH (21:49)
[2022-03-13 05:57] LABS: Basophils % 0.1 % (0.0-0.8); Eosinophils % 0.1 % (0.00-10.9); Hematocrit 32.1 VOL% (42.0-52.0); Hemoglobin 10.5 GM/DL (14.0-18.0); Immature Granulocytes % 1.4 %; Immature Granulocytes Absolute 0.12 #; Lymphocytes # 0.9 10*3/uL (1.4-4.0); Lymphocytes % 11.2 % (21.2-54.2); Mean Corpuscular HGB Conc 32.7 GM/DL (32-36); Mean Corpuscular Volume 87.2 FL (87-102); Mean Platelet Volume 10.7 FL (9.6-12.0); Monocytes # 0.8 10*3/uL (0.11-0.8); Monocytes % 9.3 % (1.7-12.7); Neutrophils % 77.9 % (38.7-73.9); Platelet Count 225 T/CUMM (130-400); Red Blood Count 3.68 MC/CUMM (3.8-5.5); Red Cell Distribution Width 15.7 % (9.3-17.3); White Blood Count 8.4 T/CUMM (4-12)
[2022-03-13 06:17] LABS: Calcium 8.3 MG/DL (8.5-10.1); Potassium 3.8 MMOL/L (3.5-5.1)
[2022-03-13] MEDS: ENOXAPARIN 60 MG/0.6 ML SYRINGE SUBCUT SCH (06:43)
[2022-03-13] MEDS: INSULIN REGULAR 100 UNIT/ML SUBCUT SCH ×5 (08:27→23:31)
[2022-03-13] MEDS: PANTOPRAZOLE 40 MG TABLET PO SCH (09:35)
[2022-03-13] MEDS: hydrALAZINE 10 MG TABLET PO SCH ×2 (09:35→23:32)
[2022-03-13] MEDS: DOCUSATE SODIUM 100 MG CAPSULE PO SCH ×2 (09:35→23:31)
[2022-03-13] MEDS: BICALUTAMIDE 50 MG TABLET PO SCH (09:35)
[2022-03-13] MEDS: LINACLOTIDE 145 MCG CAPSULE PO SCH (09:35)
[2022-03-13] MEDS: lisinopriL 20 MG TABLET PO SCH (09:36)
[2022-03-13] MEDS: BACITRACIN OINT 0.9 GM PACK TOP SCH ×3 (09:36→23:33)
[2022-03-13] MEDS: POLYETHYLENE GLYCOL POWDER 17 GM PACK PO SCH (09:37)
[2022-03-13] MEDS: HYDROmorphone 1 MG/1 ML SYRINGE IV PRN (12:46)
[2022-03-13] MEDS: LACTATED RINGERS 1,000 ML IV SCH (18:48)
[2022-03-13] MEDS: buPROPion 75 MG TABLET PO SCH ×2 (18:48→23:32)
[2022-03-13] MEDS: TAMSULOSIN 0.4 MG CAPSULE PO SCH (23:31)
[2022-03-13] MEDS: APIXABAN 5 MG TABLET PO SCH (23:31)
[2022-03-13] MEDS: SERTRALINE 50 MG TABLET PO SCH (23:32)
[2022-03-14 05:40] LABS: Basophils % 0.2 % (0.0-0.8); Eosinophils # 0.1 10*3/uL (0.0-0.87); Eosinophils % 1.3 % (0.00-10.9); Hematocrit 30.2 VOL% (42.0-52.0); Hemoglobin 9.5 GM/DL (14.0-18.0); Immature Granulocytes % 1.4 %; Immature Granulocytes Absolute 0.09 #; Lymphocytes # 0.8 10*3/uL (1.4-4.0); Lymphocytes % 13.2 % (21.2-54.2); Mean Corpuscular HGB Conc 31.5 GM/DL (32-36); Mean Corpuscular Volume 90.4 FL (87-102); Monocytes # 0.5 10*3/uL (0.11-0.8); Monocytes % 7.7 % (1.7-12.7); Neutrophils % 76.2 % (38.7-73.9); Platelet Count 145 T/CUMM (130-400); Red Blood Count 3.34 MC/CUMM (3.8-5.5); White Blood Count 6.2 T/CUMM (4-12)
[2022-03-14 06:01] LABS: Calcium 8.7 MG/DL (8.5-10.1); Osmolality,Calculated 261.5 MOS/KG (273-304); Potassium 3.9 MMOL/L (3.5-5.1)
[2022-03-14] MEDS: HYDROmorphone 1 MG/1 ML SYRINGE IV PRN (06:36)
[2022-03-14] MEDS: INSULIN REGULAR 100 UNIT/ML SUBCUT SCH ×4 (08:36→21:55)
[2022-03-14] MEDS: BACITRACIN OINT 0.9 GM PACK TOP SCH ×3 (09:55→21:56)
[2022-03-14] MEDS: LINACLOTIDE 145 MCG CAPSULE PO SCH (09:55)
[2022-03-14] MEDS: PANTOPRAZOLE 40 MG TABLET PO SCH (09:55)
[2022-03-14] MEDS: APIXABAN 5 MG TABLET PO SCH ×2 (09:55→21:55)
[2022-03-14] MEDS: lisinopriL 20 MG TABLET PO SCH (09:55)
[2022-03-14] MEDS: hydrALAZINE 10 MG TABLET PO SCH ×2 (09:55→21:55)
[2022-03-14] MEDS: POLYETHYLENE GLYCOL POWDER 17 GM PACK PO SCH (09:56)
[2022-03-14] MEDS: DOCUSATE SODIUM 100 MG CAPSULE PO SCH ×2 (09:56→21:56)
[2022-03-14] MEDS: BICALUTAMIDE 50 MG TABLET PO SCH (09:56)
[2022-03-14] MEDS: buPROPion 75 MG TABLET PO SCH ×2 (09:56→21:55)
[2022-03-14] MEDS: LACTATED RINGERS 1,000 ML IV SCH ×2 (21:56→23:57)
[2022-03-14] MEDS: SERTRALINE 50 MG TABLET PO SCH (21:56)
[2022-03-14] MEDS: TAMSULOSIN 0.4 MG CAPSULE PO SCH (21:56)
[2022-03-15] MEDS: oxyCODONE/ACETAMINOPHEN 5-325 MG TABLET PO PRN ×2 (04:33→16:19)
[2022-03-15] MEDS: HYDROmorphone 1 MG/1 ML SYRINGE IV PRN (04:42)
[2022-03-15 05:12] LABS: Basophils % 0.1 % (0.0-0.8); Eosinophils % 0.4 % (0.00-10.9); Hematocrit 28.4 VOL% (42.0-52.0); Hemoglobin 9.2 GM/DL (14.0-18.0); Immature Granulocytes % 1.2 %; Immature Granulocytes Absolute 0.08 #; Lymphocytes # 0.8 10*3/uL (1.4-4.0); Lymphocytes % 12.3 % (21.2-54.2); Mean Corpuscular HGB Conc 32.4 GM/DL (32-36); Mean Corpuscular Volume 88.2 FL (87-102); Mean Platelet Volume 10.5 FL (9.6-12.0); Monocytes # 0.6 10*3/uL (0.11-0.8); Monocytes % 8.3 % (1.7-12.7); Neutrophils % 77.7 % (38.7-73.9); Platelet Count 188 T/CUMM (130-400); Red Blood Count 3.22 MC/CUMM (3.8-5.5); Red Cell Distribution Width 15.8 % (9.3-17.3); White Blood Count 6.8 T/CUMM (4-12)
[2022-03-15 05:36] LABS: Calcium 8.2 MG/DL (8.5-10.1); Osmolality,Calculated 272.8 MOS/KG (273-304); Potassium 3.7 MMOL/L (3.5-5.1)
[2022-03-15] MEDS: INSULIN REGULAR 100 UNIT/ML SUBCUT SCH ×4 (08:41→21:24)
[2022-03-15] MEDS: BICALUTAMIDE 50 MG TABLET PO SCH (09:04)
[2022-03-15] MEDS: lisinopriL 20 MG TABLET PO SCH (09:04)
[2022-03-15] MEDS: hydrALAZINE 10 MG TABLET PO SCH ×2 (09:04→21:23)
[2022-03-15] MEDS: APIXABAN 5 MG TABLET PO SCH ×2 (09:04→21:23)
[2022-03-15] MEDS: buPROPion 75 MG TABLET PO SCH ×2 (09:04→21:23)
[2022-03-15] MEDS: DOCUSATE SODIUM 100 MG CAPSULE PO SCH ×2 (09:04→21:23)
[2022-03-15] MEDS: PANTOPRAZOLE 40 MG TABLET PO SCH (09:04)
[2022-03-15] MEDS: LACTATED RINGERS 1,000 ML IV SCH ×3 (09:05→21:24)
[2022-03-15] MEDS: POLYETHYLENE GLYCOL POWDER 17 GM PACK PO SCH (09:05)
[2022-03-15] MEDS: LINACLOTIDE 145 MCG CAPSULE PO SCH (09:05)
[2022-03-15] MEDS: BACITRACIN OINT 0.9 GM PACK TOP SCH ×3 (09:05→21:24)
[2022-03-15] MEDS: TAMSULOSIN 0.4 MG CAPSULE PO SCH (21:23)
[2022-03-15] MEDS: SERTRALINE 50 MG TABLET PO SCH (21:23)
[2022-03-16 04:50] LABS: Basophils % 0.2 % (0.0-0.8); Eosinophils # 0.1 10*3/uL (0.0-0.87); Hematocrit 28.2 VOL% (42.0-52.0); Immature Granulocytes % 1.9 %; Immature Granulocytes Absolute 0.11 #; Lymphocytes # 0.9 10*3/uL (1.4-4.0); Lymphocytes % 16.1 % (21.2-54.2); Mean Corpuscular HGB Conc 31.9 GM/DL (32-36); Mean Corpuscular Volume 87.9 FL (87-102); Monocytes # 0.5 10*3/uL (0.11-0.8); Monocytes % 9.1 % (1.7-12.7); Neutrophils % 71.7 % (38.7-73.9); Platelet Count 208 T/CUMM (130-400); Red Blood Count 3.21 MC/CUMM (3.8-5.5); Red Cell Distribution Width 15.9 % (9.3-17.3); White Blood Count 5.7 T/CUMM (4-12)
[2022-03-16 05:06] LABS: Osmolality,Calculated 271.8 MOS/KG (273-304)
[2022-03-16] MEDS: LACTATED RINGERS 1,000 ML IV SCH ×3 (05:52→23:07)
[2022-03-16] MEDS: INSULIN REGULAR 100 UNIT/ML SUBCUT SCH ×4 (07:47→21:55)
[2022-03-16] MEDS: OLANZapine ODT 5 MG TABLET PO PRN (08:35)
[2022-03-16] MEDS: LINACLOTIDE 145 MCG CAPSULE PO SCH (08:35)
[2022-03-16] MEDS: POLYETHYLENE GLYCOL POWDER 17 GM PACK PO SCH (08:35)
[2022-03-16] MEDS: hydrALAZINE 10 MG TABLET PO SCH ×2 (08:36→21:54)
[2022-03-16] MEDS: BICALUTAMIDE 50 MG TABLET PO SCH (08:36)
[2022-03-16] MEDS: APIXABAN 5 MG TABLET PO SCH ×2 (08:36→21:54)
[2022-03-16] MEDS: PANTOPRAZOLE 40 MG TABLET PO SCH (08:36)
[2022-03-16] MEDS: DOCUSATE SODIUM 100 MG CAPSULE PO SCH ×2 (08:37→21:54)
[2022-03-16] MEDS: lisinopriL 20 MG TABLET PO SCH (08:37)
[2022-03-16] MEDS: BACITRACIN OINT 0.9 GM PACK TOP SCH ×3 (08:43→21:54)
[2022-03-16] MEDS: buPROPion 75 MG TABLET PO SCH ×2 (08:43→21:54)
[2022-03-16] MEDS: SERTRALINE 50 MG TABLET PO SCH (21:54)
[2022-03-16] MEDS: TAMSULOSIN 0.4 MG CAPSULE PO SCH (21:54)
[2022-03-17 05:25] LABS: Hematocrit 29.2 VOL% (42.0-52.0); Hemoglobin 9.5 GM/DL (14.0-18.0); Mean Corpuscular HGB Conc 32.5 GM/DL (32-36); Mean Corpuscular Volume 87.7 FL (87-102); Red Blood Count 3.33 MC/CUMM (3.8-5.5); Red Cell Distribution Width 15.9 % (9.3-17.3); White Blood Count 5.9 T/CUMM (4-12)
[2022-03-17 05:26] LABS: Basophils % 0.3 % (0.0-0.8); Eosinophils % 0.5 % (0.00-10.9); Immature Granulocytes % 1.5 %; Immature Granulocytes Absolute 0.09 #; Lymphocytes # 0.9 10*3/uL (1.4-4.0); Lymphocytes % 14.8 % (21.2-54.2); Mean Platelet Volume 10.4 FL (9.6-12.0); Monocytes # 0.5 10*3/uL (0.11-0.8); Monocytes % 9.1 % (1.7-12.7); NRBC # 0.02 10*3/uL; Neutrophils % 73.8 % (38.7-73.9); Platelet Count 218 T/CUMM (130-400)
[2022-03-17 05:47] LABS: Calcium 8.5 MG/DL (8.5-10.1); Osmolality,Calculated 271.7 MOS/KG (273-304); Potassium 3.6 MMOL/L (3.5-5.1)
[2022-03-17] MEDS: INSULIN REGULAR 100 UNIT/ML SUBCUT SCH ×4 (07:55→21:22)
[2022-03-17] MEDS: LINACLOTIDE 145 MCG CAPSULE PO SCH (08:26)
[2022-03-17] MEDS: POLYETHYLENE GLYCOL POWDER 17 GM PACK PO SCH (08:29)
[2022-03-17] MEDS: lisinopriL 20 MG TABLET PO SCH (08:29)
[2022-03-17] MEDS: PANTOPRAZOLE 40 MG TABLET PO SCH (08:30)
[2022-03-17] MEDS: DOCUSATE SODIUM 100 MG CAPSULE PO SCH ×2 (08:30→21:20)
[2022-03-17] MEDS: buPROPion 75 MG TABLET PO SCH ×2 (08:30→21:21)
[2022-03-17] MEDS: APIXABAN 5 MG TABLET PO SCH ×2 (08:30→21:20)
[2022-03-17] MEDS: hydrALAZINE 10 MG TABLET PO SCH ×2 (08:30→21:20)
[2022-03-17] MEDS: BICALUTAMIDE 50 MG TABLET PO SCH (08:30)
[2022-03-17] MEDS: BACITRACIN OINT 0.9 GM PACK TOP SCH ×3 (08:31→21:22)
[2022-03-17] MEDS: LACTATED RINGERS 1,000 ML IV SCH (13:00)
[2022-03-17] MEDS: SERTRALINE 50 MG TABLET PO SCH (21:20)
[2022-03-17] MEDS: TAMSULOSIN 0.4 MG CAPSULE PO SCH (21:20)
[2022-03-18] MEDS: LACTATED RINGERS 1,000 ML IV SCH ×2 (02:20→14:59)
[2022-03-18 05:03] LABS: Basophils % 0.3 % (0.0-0.8); Eosinophils % 0.6 % (0.00-10.9); Hematocrit 30.8 VOL% (42.0-52.0); Hemoglobin 9.8 GM/DL (14.0-18.0); Immature Granulocytes % 1.8 %; Immature Granulocytes Absolute 0.12 #; Lymphocytes # 1.2 10*3/uL (1.4-4.0); Lymphocytes % 18.3 % (21.2-54.2); Mean Corpuscular HGB Conc 31.8 GM/DL (32-36); Mean Platelet Volume 11.1 FL (9.6-12.0); Monocytes # 0.6 10*3/uL (0.11-0.8); Monocytes % 9.4 % (1.7-12.7); Neutrophils % 69.6 % (38.7-73.9); Platelet Count 224 T/CUMM (130-400); Red Blood Count 3.46 MC/CUMM (3.8-5.5); Red Cell Distribution Width 16.2 % (9.3-17.3); White Blood Count 6.6 T/CUMM (4-12)
[2022-03-18 05:20] LABS: Calcium 8.9 MG/DL (8.5-10.1); Osmolality,Calculated 270.8 MOS/KG (273-304); Potassium 3.8 MMOL/L (3.5-5.1)
[2022-03-18] MEDS: INSULIN REGULAR 100 UNIT/ML SUBCUT SCH ×4 (08:49→20:52)
[2022-03-18] MEDS: POLYETHYLENE GLYCOL POWDER 17 GM PACK PO SCH (09:34)
[2022-03-18] MEDS: PANTOPRAZOLE 40 MG TABLET PO SCH (09:35)
[2022-03-18] MEDS: hydrALAZINE 10 MG TABLET PO SCH ×2 (09:35→21:40)
[2022-03-18] MEDS: lisinopriL 20 MG TABLET PO SCH (09:35)
[2022-03-18] MEDS: APIXABAN 5 MG TABLET PO SCH ×2 (09:35→21:40)
[2022-03-18] MEDS: BICALUTAMIDE 50 MG TABLET PO SCH (09:35)
[2022-03-18] MEDS: LINACLOTIDE 145 MCG CAPSULE PO SCH (09:35)
[2022-03-18] MEDS: buPROPion 75 MG TABLET PO SCH ×2 (09:36→21:39)
[2022-03-18] MEDS: DOCUSATE SODIUM 100 MG CAPSULE PO SCH ×2 (09:36→21:40)
[2022-03-18] MEDS: BACITRACIN OINT 0.9 GM PACK TOP SCH ×3 (10:01→21:40)
[2022-03-18] MEDS: TAMSULOSIN 0.4 MG CAPSULE PO SCH (21:39)
[2022-03-18] MEDS: SERTRALINE 50 MG TABLET PO SCH (21:40)
[2022-03-19] MEDS: LACTATED RINGERS 1,000 ML IV SCH (04:06)
[2022-03-19] MEDS: INSULIN REGULAR 100 UNIT/ML SUBCUT SCH ×4 (08:19→21:41)
[2022-03-19] MEDS: BICALUTAMIDE 50 MG TABLET PO SCH (08:56)
[2022-03-19] MEDS: hydrALAZINE 10 MG TABLET PO SCH ×2 (08:57→21:42)
[2022-03-19] MEDS: lisinopriL 20 MG TABLET PO SCH (08:57)
[2022-03-19] MEDS: buPROPion 75 MG TABLET PO SCH ×2 (08:57→21:42)
[2022-03-19] MEDS: BACITRACIN OINT 0.9 GM PACK TOP SCH ×3 (08:57→21:41)
[2022-03-19] MEDS: PANTOPRAZOLE 40 MG TABLET PO SCH (08:57)
[2022-03-19] MEDS: APIXABAN 5 MG TABLET PO SCH ×2 (08:58→21:41)
[2022-03-19] MEDS: LINACLOTIDE 145 MCG CAPSULE PO SCH (09:00)
[2022-03-19] MEDS: POLYETHYLENE GLYCOL POWDER 17 GM PACK PO SCH (09:00)
[2022-03-19] MEDS: DOCUSATE SODIUM 100 MG CAPSULE PO SCH ×2 (09:00→21:41)
[2022-03-19] MEDS: DESITIN 4OZ/NYSTATIN 15 GRAM MIXTURE PASTE TOP SCH ×2 (15:20→21:42)
[2022-03-19] MEDS: TAMSULOSIN 0.4 MG CAPSULE PO SCH (21:41)
[2022-03-19] MEDS: SERTRALINE 50 MG TABLET PO SCH (21:41)
[2022-03-20] MEDS: INSULIN REGULAR 100 UNIT/ML SUBCUT SCH ×4 (07:34→21:48)
[2022-03-20] MEDS: DOCUSATE SODIUM 100 MG CAPSULE PO SCH ×2 (09:53→21:47)
[2022-03-20] MEDS: lisinopriL 20 MG TABLET PO SCH (09:53)
[2022-03-20] MEDS: LINACLOTIDE 145 MCG CAPSULE PO SCH (09:53)
[2022-03-20] MEDS: POLYETHYLENE GLYCOL POWDER 17 GM PACK PO SCH (09:53)
[2022-03-20] MEDS: hydrALAZINE 10 MG TABLET PO SCH ×2 (09:53→21:47)
[2022-03-20] MEDS: APIXABAN 5 MG TABLET PO SCH ×2 (09:53→21:48)
[2022-03-20] MEDS: BACITRACIN OINT 0.9 GM PACK TOP SCH ×3 (09:54→21:48)
[2022-03-20] MEDS: BICALUTAMIDE 50 MG TABLET PO SCH (09:54)
[2022-03-20] MEDS: buPROPion 75 MG TABLET PO SCH ×2 (09:54→21:48)
[2022-03-20] MEDS: PANTOPRAZOLE 40 MG TABLET PO SCH (09:54)
[2022-03-20] MEDS: DESITIN 4OZ/NYSTATIN 15 GRAM MIXTURE PASTE TOP SCH ×2 (09:55→21:48)
[2022-03-20] MEDS: TAMSULOSIN 0.4 MG CAPSULE PO SCH (21:47)
[2022-03-20] MEDS: SERTRALINE 50 MG TABLET PO SCH (21:47)
[2022-03-21] MEDS: INSULIN REGULAR 100 UNIT/ML SUBCUT SCH ×4 (07:39→20:15)
[2022-03-21] MEDS: LINACLOTIDE 145 MCG CAPSULE PO SCH (07:43)
[2022-03-21] MEDS: PANTOPRAZOLE 40 MG TABLET PO SCH (08:32)
[2022-03-21] MEDS: buPROPion 75 MG TABLET PO SCH ×2 (08:32→20:57)
[2022-03-21] MEDS: POLYETHYLENE GLYCOL POWDER 17 GM PACK PO SCH (08:32)
[2022-03-21] MEDS: DOCUSATE SODIUM 100 MG CAPSULE PO SCH ×2 (08:33→20:57)
[2022-03-21] MEDS: hydrALAZINE 10 MG TABLET PO SCH ×2 (08:33→20:57)
[2022-03-21] MEDS: BICALUTAMIDE 50 MG TABLET PO SCH (08:33)
[2022-03-21] MEDS: APIXABAN 5 MG TABLET PO SCH ×2 (08:33→20:57)
[2022-03-21] MEDS: lisinopriL 20 MG TABLET PO SCH (08:33)
[2022-03-21] MEDS: BACITRACIN OINT 0.9 GM PACK TOP SCH ×3 (08:44→20:57)
[2022-03-21] MEDS: DESITIN 4OZ/NYSTATIN 15 GRAM MIXTURE PASTE TOP SCH ×2 (10:13→20:57)
[2022-03-21 13:48] LABS: Mucus,Urine Occasional /LPF (Occasional); RBC,Urine 1639 /HPF (0-4)
[2022-03-21 13:49] LABS: Bilirubin,Urine Negative (Negative); Blood, Urine Large mg/dL (Negative); Glucose,Urine (UA) Negative (Negative); Ketones,Urine 15 mg/dL (Negative); Nitrite,Urine Negative (Negative); Protein,Urine 30 mg/dL (Negative); Urine Appearance Clear (Clear); Urine Color Yellow (Yellow)
[2022-03-21] MEDS: TAMSULOSIN 0.4 MG CAPSULE PO SCH (20:57)
[2022-03-21] MEDS: SERTRALINE 50 MG TABLET PO SCH (20:57)
[2022-03-21] MEDS ORDERED: LORazepam 1 MG TABLET PO ONE (23:00)
[2022-03-22 08:16] LABS: Basophils % 0.4 % (0.0-0.8); Eosinophils # 0.1 10*3/uL (0.0-0.87); Eosinophils % 1.1 % (0.00-10.9); Hematocrit 30.5 VOL% (42.0-52.0); Hemoglobin 9.9 GM/DL (14.0-18.0); Immature Granulocytes % 1.7 %; Immature Granulocytes Absolute 0.08 #; Lymphocytes % 20.1 % (21.2-54.2); Mean Corpuscular HGB Conc 32.5 GM/DL (32-36); Mean Corpuscular Volume 88.7 FL (87-102); Mean Platelet Volume 10.7 FL (9.6-12.0); Monocytes # 0.4 10*3/uL (0.11-0.8); Monocytes % 8.9 % (1.7-12.7); Neutrophils % 67.8 % (38.7-73.9); Platelet Count 229 T/CUMM (130-400); Red Blood Count 3.44 MC/CUMM (3.8-5.5); Red Cell Distribution Width 16.1 % (9.3-17.3); White Blood Count 4.7 T/CUMM (4-12)
[2022-03-22 08:35] LABS: Albumin 2.2 G/DL (3.4-5.0); Bilirubin,Total 0.4 MG/DL (0.20-1.00); Calcium 8.9 MG/DL (8.5-10.1); Potassium 3.9 MMOL/L (3.5-5.1); Total Protein 6.2 G/DL (6.4-8.2)
[2022-03-22] MEDS: INSULIN REGULAR 100 UNIT/ML SUBCUT SCH ×4 (09:22→21:14)
[2022-03-22] MEDS: CEFEPIME IV SCH ×4 (10:01→22:31)
[2022-03-22] MEDS: SODIUM CHLORIDE 0.9% IV SCH ×4 (10:01→22:31)
[2022-03-22] MEDS: buPROPion 75 MG TABLET PO SCH ×2 (10:04→20:25)
[2022-03-22] MEDS: APIXABAN 5 MG TABLET PO SCH ×2 (10:04→20:25)
[2022-03-22] MEDS: LINACLOTIDE 145 MCG CAPSULE PO SCH (10:04)
[2022-03-22] MEDS: BICALUTAMIDE 50 MG TABLET PO SCH (10:04)
[2022-03-22] MEDS: DESITIN 4OZ/NYSTATIN 15 GRAM MIXTURE PASTE TOP SCH ×2 (10:05→20:25)
[2022-03-22] MEDS: BACITRACIN OINT 0.9 GM PACK TOP SCH ×3 (10:05→20:26)
[2022-03-22] MEDS: DOCUSATE SODIUM 100 MG CAPSULE PO SCH ×2 (10:05→20:25)
[2022-03-22] MEDS: PANTOPRAZOLE 40 MG TABLET PO SCH (10:05)
[2022-03-22] MEDS: POLYETHYLENE GLYCOL POWDER 17 GM PACK PO SCH (10:05)
[2022-03-22] MEDS: hydrALAZINE 10 MG TABLET PO SCH ×2 (10:05→20:25)
[2022-03-22] MEDS: lisinopriL 20 MG TABLET PO SCH (10:07)
[2022-03-22] MEDS: LEVOFLOXACIN INJ 750 MG/150 ML PREMIX IV SCH (10:43)
[2022-03-22] MEDS: VANCOMYCIN INJ 1,000 MG in SODIUM CHLORIDE 0.9% 250 ML IV SCH ×2 (12:58→22:17)
[2022-03-22] MEDS: TAMSULOSIN 0.4 MG CAPSULE PO SCH (20:25)
[2022-03-22] MEDS: SERTRALINE 50 MG TABLET PO SCH (20:25)
[2022-03-23] MEDS: CEFEPIME IV SCH ×4 (03:57→22:45)
[2022-03-23] MEDS: SODIUM CHLORIDE 0.9% IV SCH ×4 (03:57→22:45)
[2022-03-23 05:29] LABS: Basophils % 0.4 % (0.0-0.8); Eosinophils % 0.6 % (0.00-10.9); Hematocrit 28.4 VOL% (42.0-52.0); Hemoglobin 9.2 GM/DL (14.0-18.0); Immature Granulocytes % 1.4 %; Immature Granulocytes Absolute 0.07 #; Lymphocytes # 0.9 10*3/uL (1.4-4.0); Lymphocytes % 19.2 % (21.2-54.2); Mean Corpuscular HGB Conc 32.4 GM/DL (32-36); Mean Corpuscular Volume 87.9 FL (87-102); Mean Platelet Volume 10.6 FL (9.6-12.0); Monocytes # 0.5 10*3/uL (0.11-0.8); Monocytes % 9.8 % (1.7-12.7); Neutrophils % 68.6 % (38.7-73.9); Platelet Count 210 T/CUMM (130-400); Red Blood Count 3.23 MC/CUMM (3.8-5.5); White Blood Count 4.9 T/CUMM (4-12)
[2022-03-23 05:57] LABS: Albumin 2.3 G/DL (3.4-5.0); Bilirubin,Total 0.5 MG/DL (0.20-1.00); Calcium 8.7 MG/DL (8.5-10.1); Osmolality,Calculated 273.5 MOS/KG (273-304); Potassium 3.6 MMOL/L (3.5-5.1)
[2022-03-23] MEDS: BICALUTAMIDE 50 MG TABLET PO SCH (08:54)
[2022-03-23] MEDS: buPROPion 75 MG TABLET PO SCH ×2 (08:54→20:59)
[2022-03-23] MEDS: DOCUSATE SODIUM 100 MG CAPSULE PO SCH ×2 (08:54→20:59)
[2022-03-23] MEDS: POLYETHYLENE GLYCOL POWDER 17 GM PACK PO SCH (08:54)
[2022-03-23] MEDS: lisinopriL 20 MG TABLET PO SCH (08:54)
[2022-03-23] MEDS: PANTOPRAZOLE 40 MG TABLET PO SCH (08:54)
[2022-03-23] MEDS: DESITIN 4OZ/NYSTATIN 15 GRAM MIXTURE PASTE TOP SCH ×2 (08:54→21:00)
[2022-03-23] MEDS: hydrALAZINE 10 MG TABLET PO SCH ×2 (08:54→20:59)
[2022-03-23] MEDS: APIXABAN 5 MG TABLET PO SCH ×2 (08:54→20:59)
[2022-03-23] MEDS: LINACLOTIDE 145 MCG CAPSULE PO SCH (08:55)
[2022-03-23] MEDS: BACITRACIN OINT 0.9 GM PACK TOP SCH ×3 (08:56→20:59)
[2022-03-23] MEDS: LEVOFLOXACIN INJ 750 MG/150 ML PREMIX IV SCH (08:59)
[2022-03-23] MEDS: INSULIN REGULAR 100 UNIT/ML SUBCUT SCH ×4 (09:29→21:00)
[2022-03-23] MEDS: VANCOMYCIN INJ 1,000 MG in SODIUM CHLORIDE 0.9% 250 ML IV SCH ×2 (11:16→23:49)
[2022-03-23] MEDS: TAMSULOSIN 0.4 MG CAPSULE PO SCH (20:59)
[2022-03-23] MEDS: SERTRALINE 50 MG TABLET PO SCH (20:59)
[2022-03-24] MEDS: CEFEPIME IV SCH ×2 (04:11→11:01)
[2022-03-24] MEDS: SODIUM CHLORIDE 0.9% IV SCH ×2 (04:11→11:01)
[2022-03-24] MEDS: lisinopriL 20 MG TABLET PO SCH (09:08)
[2022-03-24] MEDS: APIXABAN 5 MG TABLET PO SCH (09:08)
[2022-03-24] MEDS: hydrALAZINE 10 MG TABLET PO SCH (09:08)
[2022-03-24] MEDS: PANTOPRAZOLE 40 MG TABLET PO SCH (09:09)
[2022-03-24] MEDS: buPROPion 75 MG TABLET PO SCH (09:09)
[2022-03-24] MEDS: LINACLOTIDE 145 MCG CAPSULE PO SCH (09:09)
[2022-03-24] MEDS: BICALUTAMIDE 50 MG TABLET PO SCH (09:09)
[2022-03-24] MEDS: DESITIN 4OZ/NYSTATIN 15 GRAM MIXTURE PASTE TOP SCH (11:10)
[2022-03-24] MEDS: BACITRACIN OINT 0.9 GM PACK TOP SCH (11:10)
[2022-03-24] MEDS: INSULIN REGULAR 100 UNIT/ML SUBCUT SCH ×2 (11:18→12:53)
[2022-03-24] MEDS: POLYETHYLENE GLYCOL POWDER 17 GM PACK PO SCH (11:20)
[2022-03-24] MEDS: DOCUSATE SODIUM 100 MG CAPSULE PO SCH (11:21)
[2022-03-24] MEDS: LEVOFLOXACIN INJ 750 MG/150 ML PREMIX IV SCH (12:06)
[2022-03-24] MEDS: VANCOMYCIN INJ 1,000 MG in SODIUM CHLORIDE 0.9% 250 ML IV SCH (13:06)
[2022-03-24 16:46] VITALS: BP 158/68
== END 2022-03-24 17:30 | disposition hospice, home (50) | DRG 711 ==
LOC: EDUNIT# → EDBD → N.ED 19:04 → SUATTDRO 23:39 → N.TELES 23:39
PROVIDERS: ADMIT Internal Medicine; ATTEND Emergency Medicine